=== PATIENT | male | born 1955 | race Caucasian/White ===

== ENCOUNTER 2020-03-31 19:53 | Emergency (ER) | payer OTHER ==
[~2020-03-31] VITALS: Ht 165.1 cm; Wt 82.1 kg
[2020-03-31 20:03] VITALS: Ht 165.1 cm; Wt 82.1 kg
[2020-03-31 20:46] VITALS: BP 131/91
== END 2020-03-31 20:46 | disposition home or self-care (01) ==
LOC: ED 19:53
DX: U07.1 COVID-19 (principal); M79.10 Myalgia, unspecified site; Z88.0 Allergy status to penicillin